=== PATIENT | male | born 1960 | race Caucasian/White ===

== ENCOUNTER 2025-03-10 12:37 | Inpatient (IN) | payer MEDICAID, OTHER ==
[~2025-03-10] VITALS: Ht 165.1 cm; Wt 81.3 kg
[2025-03-10 12:42] VITALS: O2SAT 98
[2025-03-10 13:40] LABS: BASOPHILS % 1.0 % (0.0-2.0); EOSINOPHILS % 5.0 % (0.0-5.0); HEMATOCRIT. 35.7 % (42.0-52.0); HEMOGLOBIN. 11.5 g/dL (14.0-18.0); LYMPHOCYTES % 29.6 % (20.0-50.0); MEAN PLATELET VOLUME 7.6 fl (7.4-10.4); MONOCYTES % 14.9 % (2.0-8.0); NEUTROPHILS % 49.5 % (40.0-76.0); PLATELET 175 x1000/uL (130-400); RED BLOOD CELL COUNT 4.64 mill/uL (4.7-6.1); RED CELL DISTRIBUTION WIDTH 19.4 % (11.6-14.6)
[2025-03-10 13:52] LABS: CREATININE 1.0 mg/dL (0.6-1.3); UREA NITROGEN BLOOD 19 mg/dL (9-23)
[2025-03-10 13:53] LABS: INR 1.0; PROTEIN TOTAL 6.5 g/dL (6.0-8.3); TROPONIN I HIGH SENSITIVITY 44 ng/L (3.0-53)
[2025-03-10 13:54] LABS: ASPARTATE AMINOTRANSFERASE 14 IU/L (<34); BILIRUBIN DIRECT 0.2 mg/dL (<=3.0)
[2025-03-10 13:55] LABS: BILIRUBIN TOTAL 0.8 mg/dL (0.1-1.0)
[2025-03-10] MEDS: MORPHINE SULFATE 4 MG/ML INJ (FOR IV/IM USE) IV ONE (14:31)
[2025-03-10 15:30] VITALS: BP 116/60; PULSE 80; RESP 18; TEMP 36.2; O2SAT 98
[2025-03-10 16:00] VITALS: BP 116/60; PULSE 80; RESP 18; TEMP 36.2; O2SAT 98
[2025-03-10] MEDS ORDERED: ONDANSETRON HCL 4MG/2ML INJ IV PRN (16:00)
[2025-03-10] MEDS ORDERED: MAGNESIUM/ALUMINUM HYDROXIDE/SIMETHICONE 30ML UDC PO PRN (16:00)
[2025-03-10] MEDS ORDERED: DOCUSATE SODIUM 100MG CAPSULE PO PRN (16:00)
[2025-03-10] MEDS ORDERED: DEXTROSE 50% WATER 50ML SYRINGE IV PRN (16:00)
[2025-03-10] MEDS ORDERED: ACETAMINOPHEN 325MG TABLET PO PRN (16:00)
[2025-03-10] MEDS ORDERED: IPRATROPIUM/ALBUTEROL 0.5-3(2.5)MG/3ML NEB HHN PRN (16:00)
[2025-03-10] MEDS ORDERED: GUAIFENESIN 200MG/10ML SUGAR FREE UDC PO PRN (16:00)
[2025-03-10] MEDS ORDERED: ATROPINE SULFATE 1MG/10ML SYR IV PRN (16:15)
[2025-03-10] MEDS ORDERED: NALOXONE HCL 0.4MG/ML VIAL IV PRN (16:30)
[2025-03-10] MEDS ORDERED: LIP40 MT (16:40)
[2025-03-10] MEDS ORDERED: TAMS-54 PO (16:40)
[2025-03-10] MEDS ORDERED: ASPI-1497 MT (16:40)
[2025-03-10 16:49] VITALS: BP 132/62; PULSE 80; RESP 18; TEMP 35.6952
[2025-03-10] MEDS: PANTOPRAZOLE SODIUM 40 MG/VIAL IV SCH (17:00)
[2025-03-10] MEDS: TAMSULOSIN HCL 0.4MG SR CAPSULE PO SCH (17:00)
[2025-03-10] MEDS: SODIUM CHLORIDE 0.45% 1,000 ML IV SCH (17:15)
[2025-03-10] MEDS: LIDOCAINE 5% PATCH TOP SCH (18:30)
[2025-03-10 20:00] VITALS: BP 114/64; PULSE 79; RESP 20; TEMP 36.4; O2SAT 98
[2025-03-10] MEDS: ATORVASTATIN CALCIUM 40MG TABLET PO SCH (21:00)
[2025-03-11 01:18] LABS: CLARITY URINE CLEAR (CLEAR); COLOR URINE YELLOW (YELLOW); GLUCOSE URINE NEGATIVE (NEGATIVE); KETONES URINE NEGATIVE (NEGATIVE); LEUKOCYTE ESTERASE URINE NEGATIVE (NEGATIVE); NITRITE URINE NEGATIVE (NEGATIVE); OCCULT BLOOD URINE NEGATIVE (NEGATIVE); PH URINE 6.0 (4.5-8.0); PROTEIN URINE NEGATIVE (NEGATIVE); SPECIFIC GRAVITY URINE 1.025 (1.005-1.030); UROBILINOGEN URINE 0.2 E.U./dL (0.2-1.0)
[2025-03-11 01:20] LABS: *AMPHETAMINES SCREEN URINE NEGATIVE (NEGATIVE); *BARBITURATES SCREEN URINE NEGATIVE (NEGATIVE); *BENZODIAZEPINES SCREEN URINE NEGATIVE (NEGATIVE); *COCAINE SCREEN URINE NEGATIVE (NEGATIVE); METHADONE URINE SCREEN NEGATIVE (NEGATIVE)
[2025-03-11 01:21] LABS: CANNABINOID URINE SCREEN NEGATIVE (NEGATIVE); ECSTASY MDMA SCREEN URINE NEGATIVE (NEGATIVE); OPIATES URINE SCREEN PRESUMPTIVE POSITIVE (NEGATIVE); PHENCYCLIDINE URINE SCREEN NEGATIVE (NEGATIVE)
[2025-03-11 08:00] VITALS: BP 127/75; PULSE 66; RESP 18; O2SAT 98
[2025-03-11] MEDS: ASPIRIN 81MG TABLET PO SCH (08:51)
[2025-03-11 13:00] VITALS: BP 120/73; PULSE 84; RESP 20; TEMP 36.4; O2SAT 99
[2025-03-11 16:00] VITALS: BP 120/73; PULSE 84; RESP 20; TEMP 36.4; O2SAT 99
[2025-03-11 20:00] VITALS: BP_SYST 124; BP_SYST 128; BP_SYST 132; BP_DIAS 78; BP_DIAS 82; BP_DIAS 89; PULSE 82; RESP 18; TEMP 36.3; O2SAT 98
[2025-03-12] VITALS (7 sets, daily range): BP systolic 106–140; BP diastolic 68–87; PULSE 64–101; RESP 18–20; TEMP 36.4–37.1; O2SAT 95–99
[2025-03-12] MEDS: TRAMADOL 50MG TABLET PO PRN (00:36)
[2025-03-13] VITALS: BP 111/82; PULSE 96; RESP 19; TEMP 36.8; O2SAT 98
[2025-03-13 01:17] LABS: TROPONIN I HIGH SENSITIVITY 17 ng/L (3.0-53)
[2025-03-13 04:00] VITALS: BP 116/88; PULSE 89; RESP 19; TEMP 36.6; O2SAT 98
[2025-03-13 08:22] VITALS: BP 132/97; PULSE 77; RESP 19; TEMP 36.3; O2SAT 96
[2025-03-13 16:14] VITALS: BP 121/76; PULSE 79; RESP 20; TEMP 36.7; O2SAT 97
[2025-03-13 22:25] VITALS: BP 132/89; PULSE 89; TEMP 98.2
[2025-04-23] MEDS ORDERED: ASPI-1497 MT (11:04)
[2025-04-23] MEDS ORDERED: FERR-63 PO (11:04)
[2025-04-23] MEDS ORDERED: LIP40 MT (11:04)
== END 2025-03-14 00:50 | DRG 48 ==
LOC: ER 12:37 → EDBEDREQ 12:54 → EDBEDREQTM 14:38 → 7WST 14:53
PROVIDERS: ADMIT Internal Medicine; ATTEND Internal Medicine
DX: G90.89 Other disorders of autonomic nervous system (principal); D50.9 Iron deficiency anemia, unspecified; D72.819 Decreased white blood cell count, unspecified; I11.9 Hypertensive heart disease without heart failure; R55 Syncope and collapse; E78.00 Pure hypercholesterolemia, unspecified; I25.10 Atherosclerotic heart disease of native coronary artery without angina pectoris; E83.52 Hypercalcemia; R00.1 Bradycardia, unspecified; N40.0 Benign prostatic hyperplasia without lower urinary tract symptoms; R03.0 Elevated blood-pressure reading, without diagnosis of hypertension; Z79.82 Long term (current) use of aspirin; Z88.6 Allergy status to analgesic agent; I25.2 Old myocardial infarction; Z95.5 Presence of coronary angioplasty implant and graft
CPT/HCPCS: 36415; 71045; 73030; 80048; 80076; 80305; 81003; 82553; 83735; 83880; 84484; 85025; 93005; 93306; 93970; 99285; A4606; J2270; J2470